=== PATIENT | male | born 1975 | race Caucasian/White ===

== ENCOUNTER 2020-08-29 11:09 | Outpatient (CLI) | payer OTHER, SELFPAY | END 2020-09-04 23:59 | disposition home or self-care (01) | LOC: MLB 11:09 → EDSTATUS 09-06 14:10 | PROVIDERS: ATTEND Internal Medicine Gastroenterology | DX: Z01.812 Encounter for preprocedural laboratory examination (principal); K57.30 Diverticulosis of large intestine without perforation or abscess without bleeding; Z20.822 Contact with and (suspected) exposure to COVID-19 ==

== ENCOUNTER 2020-11-01 09:36 | Day surgery (SDC) | payer OTHER, SELFPAY ==
[~2020-11-01] VITALS: Ht 160 cm; Wt 74.8 kg
[2020-11-01] MEDS ORDERED: fentaNYL citrate 0.05 MG/ML VIAL ONE (10:42)
[2020-11-01] MEDS ORDERED: LIDOCAINE 2% 100 MG/5 ML UJET TP ONE (10:42)
[2020-11-01] MEDS ORDERED: fentaNYL citrate 0.05 MG/ML VIAL IVP ONE (13:05)
[2020-11-06] MEDS ORDERED: TICA60TA PO (02:57)
[2020-11-06] MEDS ORDERED: CARV3.12 PO (02:57)
[2020-11-06] MEDS ORDERED: COLC-30 PO (02:57)
[2020-11-06] MEDS ORDERED: ASPI-1822 PO (02:57)
[2020-11-06] MEDS ORDERED: ATOR40TA PO (02:57)
[2020-11-06] MEDS ORDERED: ONDA4TAB PO (02:57)
[2020-11-06] MEDS ORDERED: BEN50 PO (02:57)
[2020-11-06] MEDS ORDERED: LOSA100T1 PO (02:57)
[2020-11-06] MEDS ORDERED: NITR0.4T2 SL (02:57)
== END 2020-11-01 13:45 | disposition home or self-care (01) ==
LOC: MDS 09:36 → MMU 09:47 → MDS 13:45
PROVIDERS: ATTEND Internal Medicine Gastroenterology
DX: Z12.11 Encounter for screening for malignant neoplasm of colon (principal); D12.4 Benign neoplasm of descending colon; K57.30 Diverticulosis of large intestine without perforation or abscess without bleeding; Z87.891 Personal history of nicotine dependence; Z79.82 Long term (current) use of aspirin; Z88.8 Allergy status to other drugs, medicaments and biological substances; Z79.899 Other long term (current) drug therapy; Z20.822 Contact with and (suspected) exposure to COVID-19
CPT/HCPCS: 45385; J3010; U0003